=== PATIENT | female | born 1965 | race Caucasian/White ===

== ENCOUNTER 2020-01-06 11:35 | Outpatient (CLI) | payer OTHER, SELFPAY ==
--- NOTE | ~2020-01-06 | MMUS_ITS ---
EXAMINATION: MM diagnostic makayla LT w shane, US breast LT limited HISTORY: Six-month follow-up for probably benign left breast mass TECHNIQUE: Craniocaudal, mediolateral, and mediolateral oblique 3-D tomosynthesis images of the left breast were performed and synthetic 2-D images were generated. CAD analysis was submitted and interpr eted. High resolution limited left breast ultrasound was performed. COMPARISON: 05/30/2019, 05/19/2019, 04/26/2018 BREAST PARENCHYMAL COMPOSITION: The breasts are almost entirely fatty. FINDINGS: MAMMOGRAPHIC FINDINGS: A previously seen mass in the middle third of the outer breast at the 3:00 location has decreased in size since the comparison examination, consistent with a benign finding. There is been no suspicious calcification or architectural distortion. No new mass is identified. There is no suspicious interval change. ULTRASOUND: There is no evidence of focal abnormal solid or cystic lesion in the vicinity of the mammographic fin ding in question. In addition, the previously described ultrasound finding at the 1:00 location 7 cm from the nipple appear to more accurately represent normal parenchymal tissue on the current examinat ion. IMPRESSION: 1. No mammographic or sonographic evidence of malignancy. 2. Recommend routine screening mammography, due on the right in four months. BI-RADS Category 2: Benign finding(s). Reviewed, dictated and finalized at location A. IMPRESSION: 1. No mammographic or sonographic evidence of malignancy. 2. Recommend routine screening mammography, due on the right in four months. BI-RADS Category 2: Benign finding(s).
== END 2020-01-06 11:36 | disposition home or self-care (01) ==
PROVIDERS: PCP Family Medicine; Visit Provider Obstetrics & Gynecology
DX: R92.8 Other abnormal and inconclusive findings on diagnostic imaging of breast (principal)
CPT/HCPCS: 76642; 77061; 77065; G0279

== ENCOUNTER → 2020-02-13 11:59 | Outpatient (CLI) | payer OTHER, SELFPAY ==
--- NOTE | ~2020-02-13 | XR_ITS ---
EXAMINATION: XR knee LT 3V DATE: 02/13/2020 12:30 INDICATION: Left knee joint effusion. TECHNIQUE: 3 views of left knee were obtained. COMPARISON: None. FINDINGS: Bone alignment is normal. No fracture. There is mild tricompartmental osteoarthritis. No kn ee joint effusion. IMPRESSION: 1. Mild left knee osteoarthritis. Reviewed, dictated and finalized at location A.
== END ==
PROVIDERS: PCP Family Medicine; Visit Provider Family Medicine
DX: M17.12 Unilateral primary osteoarthritis, left knee (principal)
CPT/HCPCS: 73562

== ENCOUNTER → 2020-03-28 09:31 | Outpatient (CLI) | payer OTHER, SELFPAY ==
--- NOTE | ~2020-03-28 | DEXA_ITS ---
Bone Density Report Name: Angie Palmer Age: 54 Sex: Female Ethnicity: White Date of : 1965 Indication: postmenopausal; screening for osteoporosis; hysterectomy; Referring Provider: Carlos Fall Study: Bone densitometry was performed. Exam Date: March 28, 2020 Accession number: [id number] Bone Density: Region BMD T-score Z-score Classification AP Spine (L1-L4) 0.926 -1.1 0.0 Osteopenia Femoral Neck (Left) 0.613 -2.1 -1.1 Osteopenia Total Hip (Left) 0.886 -0.5 0.2 Normal Femoral Neck (Right) 0.749 -0.9 0.2 Normal Total Hip (Right) 0.916 -0.2 0.5 Normal Total Hip Mean 0.901 -0.4 0.4 Normal World Health Organization criteria for BMD impression classify patients as: Normal (T-score at or above -1.0), Osteopenia (T-score between -1.0 and -2.5), or Osteoporosis (T-score at or below -2.5). 10-year Fracture Risk(1): Major Osteoporotic Fracture 6.9% Hip Fracture 0.8% Reported Risk Factors: [place] (), Neck BMD=0.613, BMI=42.3 (1) FRAX(R) Version 3.08. Fracture probability calculated for an untreated patient. Fracture probability may be lower if the patient has received treatment. Clinical Information Provided by Patient: Has used the following medications: Vitamin D, GUS Has the following medical conditions: Hysterectomy Patient maximum height was 63 Menopause Age: 52 Drinks caffeinated beverages Onset of menses at age 12 Number of children 1 Impression: The patient has low bone mass, based on the Left Femoral Neck T-score. The patient has an estimated ten-year risk of hip fracture of 0.8% and an estimated ten-year risk of major fracture of 6.9%, based on the WHO FRAX algorithm. Discussion: BONE DENSITY IS LOW AT ONE OR MORE SKELETAL SITES. This patient's lowest T-score is low at one or more skeletal sites. It meets the World Health Organization's (WHO) criteria for ?low bone mass? (T-score between -1.0 and -2.5). The patient's 10-year risk of fracture as calculated by FRAX is less than the threshold where pharmacological therapy is recommended by the National Osteoporosis Foundation (NOF). However, all treatment decisions require clinical judgment and consideration of individual patient factors, including patient preferences, comorbidities, previous drug use, risk factors not captured in the FRAX model (e.g., frailty, falls, vitamin D deficiency, increased bone turnover, interval significant decline in bone density) and possible under or overestimation of fracture risk by FRAX. The patient should follow a healthful lifestyle (good nutrition with adequate calcium and vitamin D, and appropriate weight-bearing exercise). Follow-Up: Consider repeating this study in 2 to 3 years to reassess this patient's status, or sooner if there is some new clinical indication.
== END ==
PROVIDERS: PCP Family Medicine; Visit Provider Orthopaedic Surgery
DX: M85.80 Other specified disorders of bone density and structure, unspecified site (principal)
CPT/HCPCS: 77080

== ENCOUNTER → 2020-04-04 18:06 | Outpatient (CLI) | payer OTHER, SELFPAY ==
--- NOTE | ~2020-04-04 | MR_ITS ---
EXAMINATION: MR knee LT wo con DATE: 04/04/2020 19:20 INDICATION: Left knee pain TECHNIQUE: Magnetic resonance imaging (MRI) of the left knee was performed without intravenous contra st. Sequences included coronal PD-weighted FSE, coronal PD-weighted FS FSE, sagittal T2-weighted FSE , sagittal PD-weighted FS FSE and axial PD weighted fat saturated FSE. COMPARISON: None. FINDINGS: Medial compartment: Full-thickness radial tear at the posterior horn of the medial meniscus. Partial-thickness chondral u lceration/fissuring at the junction of the anterior to central weightbearing medial femoral condyle. Partial thickness cartilage loss with relatively smooth chondral surface along the medial half of the medial tibial plateau. There is prominent marrow edema underlying the medial aspect of the medial ti bial plateau surrounding the curvilinear low signal intensity subarticular fracture line which could be related to either a discrete trauma or stress fracture related to altered stress distribution. Sim ilar juxtaposed region of edema and subarticular low signal intensity likely fracture line along the medial rim of the anterior weightbearing medial femoral condyle. Lateral compartment: Lateral meniscus is normal. Articular cartilage is normal. Patellofemoral compartment: Partial-thickness chondral ulceration at the medial trochlea with subtle underlying cortical irregula rity. Ligaments and tendons: Anterior and posterior cruciate ligaments are normal. The medial collateral ligament and fibular tru ateral ligament complex are normal. Mild tendinopathy without discrete tear at the distal quadriceps and distal patellar tendons. The visualized medial and lateral hamstring tendons as well as the iliot ibial band are normal. Fluid: Moderate sized right knee joint effusion. No loose osteochondral bodies identified. Diffuse mild soft tissue edema about the left knee. Osseous/other: Normal marrow signal aside from previous noted subarticular edema at the medial femoral condyle and m edial tibial plateau likely related to nondisplaced articular stress fractures as previously detailed . No other fracture or pathologic marrow replacing process. IMPRESSION: 1. Radial tear at the posterior horn of the medial meniscus. 2. Prominent marrow edema surrounding nondisplaced subarticular fracture lines at the medial margin o f the medial tibial plateau and anterior weightbearing medial femoral condyle which could be related to either discrete trauma or stress fracture related to the meniscal tear and altered weight distribu tion. 3. Mild medial and patellofemoral compartment osteoarthritis with focal chondromalacia as detailed ab ove. 4. Likely reactive moderate sized left knee joint effusion. Reviewed, dictated and finalized at location A. IMPRESSION: 1. Radial tear at the posterior horn of the medial meniscus. 2. Prominent marrow edema surrounding nondisplaced subarticular fracture lines at the medial margin of the medial tibial plateau and anterior weightbearing me dial femoral condyle which could be related to either discrete trauma or stress fracture related to the meniscal tear and altered weight distribution. 3. Mild medial and patellofemoral compartment osteoarthritis with focal chondro malacia as detailed above. 4. Likely reactive moderate sized left knee joint effusion.
== END ==
PROVIDERS: Visit Provider Orthopaedic Surgery
DX: M25.462 Effusion, left knee (principal); S83.242A Other tear of medial meniscus, current injury, left knee, initial encounter; X58.XXXA Exposure to other specified factors, initial encounter
CPT/HCPCS: 73721

== ENCOUNTER 2020-05-22 11:49 | Outpatient (CLI) | payer OTHER, SELFPAY ==
--- NOTE | ~2020-05-22 | US_ITS ---
EXAMINATION: US venous doppler [facility] EXAM DATE: 05/22/2020 12:36 INDICATION: Left knee swelling. TECHNIQUE: Multiple grayscale, color flow and Doppler images of the left lower extremity deep venous system were obtained and reviewed. There is no prior study for comparison. FINDINGS: The left common femoral, femoral and profunda veins demonstrate normal color flow, respirat ory variation, augmentation and compressibility. Compressibility, color flow confirmed within the le ft popliteal, posterior tibial, peroneal, and greater saphenous veins. IMPRESSION: 1. No left lower extremity deep venous thrombosis. Reviewed, dictated and finalized at location B. CAL CLERICAL ASSISTANT
== END 2020-05-22 11:50 | disposition home or self-care (01) ==
PROVIDERS: PCP Family Medicine; Visit Provider Orthopaedic Surgery
DX: M25.462 Effusion, left knee (principal)
CPT/HCPCS: 93971

== ENCOUNTER → 2021-07-26 16:40 | Outpatient (CLI) | payer BC, SELFPAY ==
--- NOTE | ~2021-07-26 | XR_ITS ---
XR foot RT min 3V DATE: 07/26/2021 16:57 INDICATION: Wound on the bottom of the right foot. No injury. TECHNIQUE: 4 views COMPARISON: August 14, 2016 right foot FINDINGS: Moderate plantar calcaneal enthesopathy without erosive change or periostitis. Mild posteri or calcaneal enthesopathy. No fracture or dislocation, periosteal reaction or bone destruction. IMPRESSION: Calcaneal enthesopathy Reviewed, dictated and finalized at location A. [facility] LIVING CARE MANAGER IMPRESSION: Calcaneal enthesopathy
== END ==
PROVIDERS: PCP Family Medicine; Visit Provider Family Medicine
DX: S99.921A Unspecified injury of right foot, initial encounter (principal); X58.XXXA Exposure to other specified factors, initial encounter; M77.31 Calcaneal spur, right foot
CPT/HCPCS: 73630

== ENCOUNTER 2022-02-14 14:50 | Outpatient (CLI) | payer BC, SELFPAY ==
--- NOTE | ~2022-02-14 | MM_ITS ---
EXAMINATION: MM screening makayla BI w shane HISTORY: Screening mammogram TECHNIQUE: Craniocaudal and mediolateral oblique 3-D tomosynthesis images were obtained and synthetic 2-D images were generated. CAD analysis was submitted and interpreted. COMPARISON: No prior mammogram is available for comparison at this institution. BREAST PARENCHYMAL COMPOSITION: FINDINGS: 2.7 mm opacity is noted in the anterior outer left breast on craniocaudal view. Diagnostic left mammo gram and left breast ultrasound examination are recommended. No suspicious mass or architectural distortion, malignant calcification, skin thickening or retractio n of either breast is noted otherwise. IMPRESSION: 1. No 2.7 mm mass, anterior outer left breast 2. Diagnostic left mammogram and left breast ultrasound examination are recommended BI-RADS Category 0: Incomplete: Needs additional imaging evaluation. Reviewed, dictated and finalized at location A. IMPRESSION: 1. No 2.7 mm mass, anterior outer left breast 2. Diagnostic left mammogram and left breast ultrasound examination are recomme nded BI-RADS Category 0: Incomplete: Needs additional imaging evaluation.
== END 2022-02-14 14:51 | disposition home or self-care (01) ==
LOC: ANHIMG 14:54
PROVIDERS: PCP Emergency Medicine; Visit Provider Obstetrics & Gynecology
DX: Z12.31 Encounter for screening mammogram for malignant neoplasm of breast (principal); R92.8 Other abnormal and inconclusive findings on diagnostic imaging of breast
CPT/HCPCS: 77063; 77067

== ENCOUNTER 2022-03-07 12:12 | Outpatient (CLI) | payer BC, SELFPAY ==
--- NOTE | ~2022-03-07 | MMUS_ITS ---
EXAMINATION: MM diagnostic makayla LT w shane, US breast LT limited HISTORY: 2.7 mm opacity noted in anterior outer left breast on screening craniocaudal view of 02/15/20 TECHNIQUE: Additional 3-D tomosynthesis images of the left breast were performed and synthetic 2-D im ages were generated. CAD analysis was submitted and interpreted. High resolution targeted upper outer quadrant left breast ultrasound was performed. COMPARISON: 02/14/2022, 01/06/2020 bilateral screening mammogram examinations FINDINGS: MAMMOGRAPHIC FINDINGS: An approximately 3 mm mass is confirmed anteriorly in the upper outer quadrant of left breast at appr oximately 2:00 position. Sonographic correlation was obtained. ULTRASOUND: 2:00 1 cm from nipple: There is an irregular hypoechoic area measuring approximately 4.8 x 2.6 x 2.3 mm. Ultrasound-guided biopsy is recommended. IMPRESSION: 1. Suspicious small approximately 3 mm mammographic and sonographic mass at 2:00 2. Ultrasound-guided biopsy of left 2:00 breast mass is recommended BI-RADS category 4, suspicious findings. Dr. Lerner telephoned the report and ultrasound-guided biopsy recommendation on 03/17/2022 1345 hours to Stephan Astudillo Reviewed, dictated and finalized at location A. IMPRESSION: 1. Suspicious small approximately 3 mm mammographic and sonographic mass at 2:0 0 2. Ultrasound-guided biopsy of left 2:00 breast mass is recommended BI-RADS category 4, suspicious findings. Dr. Lerner telephoned the report and ultrasound-guided biopsy recommendation on 1345 hours to Stephan Astudillo
== END 2022-03-07 12:13 | disposition home or self-care (01) ==
LOC: ANHIMG 12:13
PROVIDERS: PCP Emergency Medicine; Visit Provider Obstetrics & Gynecology
DX: R92.8 Other abnormal and inconclusive findings on diagnostic imaging of breast (principal)
CPT/HCPCS: 76642; 77061; 77065; G0279

== ENCOUNTER 2022-03-08 13:22 | Emergency (ER) | payer BC, SELFPAY ==
[2022-03-08 13:36] VITALS: BP 128/80; PULSE 78; RESP 16; TEMP 36.3; O2SAT 99
--- NOTE | 2022-03-08 13:44 | ED.URI ---
HPI - URI/Sore Throat General Chief Complaint: Upper Respiratory Infection Stated Complaint: COUGH/CONGESTION Time Seen by Provider: 03/08/22 13:44 Source: patient and RN notes reviewed Mode of arrival: ambulatory Limitations: no limitations History of Present Illness HPI Narrative: 56-year-old female presents with concern for cough and chest congestion for 5 days. Reports her primary care doctor called her in [place] which were not helping. She denies shortness of breath, body aches, chills, sweats. She reports productive cough. She denies known sick contacts MD elicited complaint: cough Related Data Home Medications Medication Instructions Recorded Confirmed valacyclovir 500 mg tablet 500 mg PO DAILY 03/14/20 03/08/22 hydroxychloroquine 200 mg tablet 200 mg PO DAILY 01/04/21 03/08/22 meloxicam 15 mg tablet 15 mg PO DAILY 01/04/21 03/08/22 oxybutynin chloride 15 mg 15 mg PO DAILY 01/04/21 03/08/22 tablet,extended release 24 hr benzonatate 100 mg capsule mg PO 03/08/22 Allergies Allergy/AdvReac Type Severity Reaction Status Date / Time erythromycin base Allergy Intermediate RASH Verified 03/08/22 13:30 Penicillins Allergy Intermediate RASH Verified 03/08/22 13:30 azithromycin Allergy Unknown diarrhea Verified 03/08/22 13:30 cephalexin Allergy Unknown Skin Verified 03/08/22 13:30 Reaction Cephalosporins Allergy Unknown Unknown Verified 03/08/22 13:30 Macrolide Antibiotics Allergy Unknown Rash Verified 03/08/22 13:30 Sulfa (Sulfonamide Allergy Unknown RASH Verified 03/08/22 13:30 Antibiotics) CEPHALEXIN MONOHYDRATE Allergy Mild RASH Uncoded 03/08/22 13:30 MACROLIDES Allergy Unknown RASH Uncoded 03/08/22 13:30 Review of Systems Review of Systems: CONSTITUTIONAL: Denies malaise, chills, sweats, or fever. EYES: Denies visual changes, redness, or discharge. ENT: Denies rhinorrhea, congestion, sinus pain, otalgia and sore throat. CARDIOVASCULAR: Denies chest pain, palpitations, or edema. RESPIRATORY: Reports cough and chest congestion Denies dyspnea. GASTROINTESTINAL: Denies abdominal pain, nausea, vomiting, diarrhea SKIN: Denies rash or itching. MUSCULOSKELETAL: Denies myalgia. NEUROLOGIC: Denies headache. All systems reviewed & are unremarkable except as noted in HPI and below PMFSH Past Medical History Medical History (Updated 03/08/22 @ 13:50 by Irasema Chairez NP) Basal cell carcinoma (BCC) left knee Body mass index (BMI) of 40.1 to 44.9 in adult Hernia Surgical History Surgical History H/O: section H/O: hysterectomy Family History Family History Father Family history of cardiovascular disease Mother Family history of lung cancer Family history of malignant neoplasm of skin Other Cerebrovascular accident Diabetes mellitus Family history of allergic disorder Family history of malignant neoplasm Family history of malignant neoplasm of breast in first degree relative Social History Social History Smoking status: Never smoker Alcohol intake: current Comments At time of signature, agree with nursing past medical, surgical, social and family history. There is no relevant family history pertinent to the presenting complaint Exam Narrative: GENERAL: Well-appearing, well-nourished, and in no acute distress. HEAD: Normocephalic EYES: PERRLA, conjunctivae clear ENT: Nares clear, turbinates edematous and erythematous, clear discharge. Mucous membranes moist. TM pearly steiner with dull light reflex bilaterally; no tragal tenderness. Oropharynx not erythematous without lesions. Tonsils not enlarged and without exudate, no drooling, no hoarseness, no trismus, uvula midline. NECK: Supple. No lymphadenopathy CHEST: Clear to auscultation, breath sounds equal. No wheezing, rhonchi, rales, or stridor. No respira
== END 2022-03-08 14:03 | disposition home or self-care (01) ==
PROVIDERS: Emergency Provider Nurse Practitioner; PCP Emergency Medicine
DX: J40 Bronchitis, not specified as acute or chronic (principal); Z85.828 Personal history of other malignant neoplasm of skin
CPT/HCPCS: 99213; G0463

== ENCOUNTER 2023-02-25 08:15 | Outpatient (CLI) | payer BC, SELFPAY ==
[2023-02-25 18:32] LABS: Basophils Absolute Auto 0.1 K/mm3 (0.0-0.1); Basophils Percent Auto 1.3 % (0.2-1.2); Eosinophils Absolute Auto 0.2 K/mm3 (0-0.3); Eosinophils Percent Auto 3.7 % (0-4.4); Hematocrit 41.4 % (37.0-47.0); Hemoglobin 13.1 g/dL (12.0-15.0); Immature Granulocyte Absolute 0.02 K/mm3 (0.00-0.031); Immature Granulocyte Percent A 0.3 % (0-0.5); Lymphocytes Absolute Auto 1.51 K/mm3 (0.9-3.2); Lymphocytes Percent Auto 24.3 % (18.3-44.2); Mean Corpuscular HGB Conc 31.6 g/dl (32-36); Mean Corpuscular Hemoglobin 30.6 pg (26-34); Mean Corpuscular Volume 96.7 fl (80-100); Mean Platelet Volume 10.6 fl (7.4-10.4); Monocytes Absolute Auto 0.8 K/mm3 (0.1-0.6); Monocytes Percent Auto 12.4 % (2.6-8.5); Neutrophils Absolute Auto 3.6 K/mm3 (1.3-6.7); Platelet Count Result 279 k/mm3 (150-375); Red Blood Count 4.28 M/mm3 (4.2-5.4); Red Cell Distribution Width 12.1 % (11.5-14.5); White Blood Count 6.2 K/mm3 (4.5-10.0)
[2023-02-25 19:12] LABS: Appearance Urine Cloudy (Clear); Bacteria Urine 3+ /hpf; Bilirubin Urine Negative (Negative); Blood Urine Negative (Negative); Color Urine Yellow (Yellow); Glucose Urine UA Negative (Negative); Hyaline Casts Urine Present /lpf; Ketones Urine Negative (Negative); Leukocyte Esterase Ur 2+ LEU/UL (NEGATIVE); Nitrate Urine Negative (Negative); Non Pathogenic Casts 0-2; Protein Urine Negative (Negative); Squamous Epithelial Cell Urine Few /hpf (Few); Urobilinogen Urine 0.2 mg/dL (<2.0)
[2023-02-25 19:17] LABS: Add Urine Microscopic? YES
[2023-02-25 19:21] LABS: Alanine Aminotransferase 26 U/L (6-35); Albumin Level 4.4 g/dL (3.5-5.1); Alkaline Phosphatase 83 U/L (38-126); Anion Gap 9 mmol/L (8-16); Aspartate Amino Transferase 30 U/L (14-36); Bilirubin,Total 0.5 mg/dL (0.2-1.3); Blood Urea Nitrogen 20 mg/dL (7-17); CRP 1.4 mg/dL (<1.0); Calcium 9.1 mg/dL (8.4-10.2); Carbon Dioxide 27 mmol/L (22-30); Chloride 101 mmol/L (98-107); Estimated Glomerular Filt Rate > 60; Glucose 78 mg/dL (65-110); Potassium 4.3 mmol/L (3.4-5.0); Sodium 137 mmol/L (137-145)
[2023-02-25 19:30] LABS: Erythrocyte Sedimentation Rate 21 mm/hr (0-20)
== END 2023-02-25 08:16 | disposition home or self-care (01) ==
LOC: ANHGOSHLAB 08:19
PROVIDERS: PCP Emergency Medicine; Visit Provider Internal Medicine Rheumatology
DX: M35.00 Sjogren syndrome, unspecified (principal); Z51.81 Encounter for therapeutic drug level monitoring; R76.8 Other specified abnormal immunological findings in serum
CPT/HCPCS: 36415; 80053; 81001; 85025; 85652; 86140

== ENCOUNTER 2023-05-10 12:49 | Emergency (ER) | payer BC, SELFPAY ==
[2023-05-10 13:00] VITALS: BP 125/90; PULSE 81; RESP 16; TEMP 37.4; O2SAT 96
--- NOTE | 2023-05-10 13:01 | ED.URI ---
HPI - URI/Sore Throat General Chief Complaint: Upper Respiratory Infection Stated Complaint: Sinus Infection Time Seen by Provider: 05/10/23 13:13 Source: patient, RN notes reviewed and old records reviewed Mode of arrival: ambulatory Limitations: no limitations History of Present Illness HPI Narrative: 57 year old female presents to express care with complaints of feeling sinus congestion, drainage since Thursday with symptoms progressively getting worse. patient reports that she can't use her C-PAP since she is so stuffed up, she has headache and since yesterday evening she has had some generalized achiness. Patient reports that she has been taking her Zyrtec and some Sudafed with no help. Patient reports that she is unsure if she has had any fevers, has had some intermittent sinus headache that was relieved in the shower last night Patient reports that she has progressively felt worse and more worn down.Patient has been COVID vaccinated and has had flu shot. MD elicited complaint: cough, rhinorrhea and nasal congestion Pertinent past history: sinusitis, seasonal allergies and other (on hydroxychloroquine for Sjorgens) Onset (ago): day(s) (4 days sinus congestion, 1 day of body aches) Consistency: progressively worsening Pain scale (0-10): 3 Treatments prior to arrival: other (Zyrtec and Sudafed) Related Data Home Medications Medication Instructions Recorded Confirmed valacyclovir 500 mg tablet 500 mg PO DAILY 03/14/20 05/23/22 hydroxychloroquine 200 mg tablet 200 mg PO DAILY 01/04/21 05/23/22 meloxicam 15 mg tablet 15 mg PO DAILY 01/04/21 05/23/22 oxybutynin chloride 15 mg 15 mg PO DAILY 01/04/21 05/23/22 tablet,extended release 24 hr Allergies Allergy/AdvReac Type Severity Reaction Status Date / Time erythromycin base Allergy Intermediate RASH Verified 05/23/22 13:32 Penicillins Allergy Intermediate RASH Verified 05/23/22 13:32 azithromycin Allergy Unknown diarrhea Verified 05/23/22 13:32 cephalexin Allergy Unknown Skin Verified 05/23/22 13:32 Reaction Cephalosporins Allergy Unknown Unknown Verified 05/23/22 13:32 Macrolide Antibiotics Allergy Unknown Rash Verified 05/23/22 13:32 Sulfa (Sulfonamide Allergy Unknown RASH Verified 05/23/22 13:32 Antibiotics) CEPHALEXIN MONOHYDRATE Allergy Mild RASH Uncoded 05/23/22 13:32 MACROLIDES Allergy Unknown RASH Uncoded 05/23/22 13:32 Review of Systems Review of Systems: CONSTITUTIONAL: Reports malaise, chills, sweats, or fever. EYES: Denies visual changes, redness, or discharge. ENT: Reports rhinorrhea, congestion, sinus pain,no otalgia and no sore throat. CARDIOVASCULAR: Denies chest pain, palpitations, or edema. RESPIRATORY: Reports no acute cough.? Denies dyspnea. GASTROINTESTINAL: Denies abdominal pain, nausea, vomiting, diarrhea SKIN: Denies rash or itching. MUSCULOSKELETAL:reports generalized myalgia. NEUROLOGIC: Reports headache. All systems reviewed & are unremarkable except as noted in HPI and below PMFSH Past Medical History Medical History (Updated 05/11/23 @ 10:38 by Alia Sanchez NP) Basal cell carcinoma (BCC) left cheek Body mass index (BMI) of 40.1 to 44.9 in adult Hernia History of Sjogren's disease LUDWIN on CPAP Surgical History Surgical History H/O: section H/O: hysterectomy Family History Family History Father Family history of cardiovascular disease Mother Family history of lung cancer Family history of malignant neoplasm of skin Other Cerebrovascular accident Diabetes mellitus Family history of allergic disorder Family history of malignant neoplasm Family history of malignant neoplasm of breast in first degree relative Social History Social History Social History: Caffeine-coffee daily Smoking status: Never smoker Alcohol
== END 2023-05-10 13:47 | disposition home or self-care (01) ==
PROVIDERS: Emergency Provider Registered Nurse; PCP Emergency Medicine
DX: U07.1 COVID-19 (principal); M35.00 Sjogren syndrome, unspecified; G47.33 Obstructive sleep apnea (adult) (pediatric); Z85.828 Personal history of other malignant neoplasm of skin
CPT/HCPCS: 87426; 87804; 99213; C9803; G0463

== ENCOUNTER 2023-07-26 12:57 | Emergency (ER) | payer BC, SELFPAY ==
[2023-07-26 13:24] VITALS: BP 137/73; PULSE 83; RESP 16; TEMP 37; O2SAT 97
--- NOTE | 2023-07-26 13:28 | ED.URI ---
HPI - URI/Sore Throat General Chief Complaint: Upper Respiratory Infection Stated Complaint: BODY ACHES/TIRED/WATERY EYES/SINUS/SORE THROAT Time Seen by Provider: 07/26/23 13:40 Source: patient and RN notes reviewed Mode of arrival: ambulatory Limitations: no limitations History of Present Illness HPI Narrative: 57-year-old female presents concern for watery eyes, sore throat, nasal drainage, fatigue this started yesterday. Reports she took an allergy pill without much relief. She denies fever. Reports body and fatigue. MD elicited complaint: sore throat and nasal congestion Related Data Home Medications Medication Instructions Recorded Confirmed valacyclovir 500 mg tablet 500 mg PO DAILY 03/14/20 05/23/22 hydroxychloroquine 200 mg tablet 200 mg PO DAILY 01/04/21 05/23/22 meloxicam 15 mg tablet 15 mg PO DAILY 01/04/21 05/23/22 oxybutynin chloride 15 mg 15 mg PO DAILY 01/04/21 05/23/22 tablet,extended release 24 hr citalopram 20 mg tablet mg 07/26/23 Allergies Allergy/AdvReac Type Severity Reaction Status Date / Time erythromycin base Allergy Intermediate RASH Verified 05/23/22 13:32 Penicillins Allergy Intermediate RASH Verified 05/23/22 13:32 azithromycin Allergy Unknown diarrhea Verified 05/23/22 13:32 cephalexin Allergy Unknown Skin Verified 05/23/22 13:32 Reaction Cephalosporins Allergy Unknown Unknown Verified 05/23/22 13:32 Macrolide Antibiotics Allergy Unknown Rash Verified 05/23/22 13:32 Sulfa (Sulfonamide Allergy Unknown RASH Verified 05/23/22 13:32 Antibiotics) CEPHALEXIN MONOHYDRATE Allergy Mild RASH Uncoded 05/23/22 13:32 MACROLIDES Allergy Unknown RASH Uncoded 05/23/22 13:32 Review of Systems Review of Systems: CONSTITUTIONAL: Reports malaise, fatigue EYES: Denies visual changes, redness, or discharge. ENT: Reports rhinorrhea, congestion, otalgia and sore throat. CARDIOVASCULAR: Denies chest pain, palpitations, or edema. RESPIRATORY: Denies cough. Denies dyspnea. GASTROINTESTINAL: Denies abdominal pain, nausea, vomiting, diarrhea SKIN: Denies rash or itching. MUSCULOSKELETAL: Reports myalgia. NEUROLOGIC: Denies headache. All systems reviewed & are unremarkable except as noted in HPI and below PMFSH Past Medical History Medical History (Updated 07/26/23 @ 13:47 by Irasema Chairez NP) Basal cell carcinoma (BCC) left cheek Body mass index (BMI) of 40.1 to 44.9 in adult Hernia History of Sjogren's disease LUDWIN on CPAP Surgical History Surgical History H/O: section H/O: hysterectomy Family History Family History Father Family history of cardiovascular disease Mother Family history of lung cancer Family history of malignant neoplasm of skin Other Cerebrovascular accident Diabetes mellitus Family history of allergic disorder Family history of malignant neoplasm Family history of malignant neoplasm of breast in first degree relative Social History Social History Social History: Caffeine-coffee daily Smoking status: Never smoker Alcohol intake: current Alcohol use details: wine Lack of Transportation: No Lack of Food: Never True Current Housing: I Have Housing Concerned About Future Housing: No Difficulty Paying Gas/Electric Bills: No Difficulty Paying for Meds: Decline to Answer Currently Unemployed: No Education: Bachelor's Degree Difficulty w/ Childcare or Family Care: No Comments At time of signature, agree with nursing past medical, surgical, social and family history. There is no relevant family history pertinent to the presenting complaint Exam Narrative: GENERAL: Well-appearing, well-nourished, and in no acute distress. HEAD: Normocephalic EYES: PERRLA, conjunctivae clear ENT: Nares clear, turbinates edematous and erythematous, clear discharge.
== END 2023-07-26 13:58 | disposition home or self-care (01) ==
PROVIDERS: Emergency Provider Nurse Practitioner; PCP Emergency Medicine
DX: J06.9 Acute upper respiratory infection, unspecified (principal); Z20.822 Contact with and (suspected) exposure to COVID-19; G47.33 Obstructive sleep apnea (adult) (pediatric); M35.00 Sjogren syndrome, unspecified; Z85.828 Personal history of other malignant neoplasm of skin
CPT/HCPCS: 87081; 87426; 87804; 87880; 99213; G0463

== ENCOUNTER 2023-09-22 10:43 | Outpatient (CLI) | payer BC, SELFPAY ==
[2023-09-22 14:03] LABS: Basophils Absolute Auto 0.1 K/mm3 (0.0-0.1); Basophils Percent Auto 1.5 % (0.2-1.2); Eosinophils Absolute Auto 0.2 K/mm3 (0-0.3); Eosinophils Percent Auto 2.9 % (0-4.4); Hematocrit 41.3 % (37.0-47.0); Hemoglobin 13.2 g/dL (12.0-15.0); Immature Granulocyte Absolute 0.03 K/mm3 (0.00-0.031); Immature Granulocyte Percent A 0.5 % (0-0.5); Lymphocytes Absolute Auto 1.71 K/mm3 (0.9-3.2); Lymphocytes Percent Auto 26.3 % (18.3-44.2); Mean Corpuscular Hemoglobin 30.6 pg (26-34); Mean Corpuscular Volume 95.6 fl (80-100); Mean Platelet Volume 10.7 fl (7.4-10.4); Monocytes Absolute Auto 0.7 K/mm3 (0.1-0.6); Monocytes Percent Auto 10.8 % (2.6-8.5); Neutrophils Absolute Auto 3.8 K/mm3 (1.3-6.7); Platelet Count Result 283 k/mm3 (150-375); Red Blood Count 4.32 M/mm3 (4.2-5.4); Red Cell Distribution Width 12.4 % (11.5-14.5); White Blood Count 6.5 K/mm3 (4.5-10.0)
[2023-09-22 14:25] LABS: Alanine Aminotransferase 25 U/L (6-35); Albumin Level 4.4 g/dL (3.5-5.1); Alkaline Phosphatase 85 U/L (38-126); Anion Gap 2 mmol/L (4-12); Aspartate Amino Transferase 50 U/L (14-36); Bilirubin,Total 0.5 mg/dL (0.2-1.3); Blood Urea Nitrogen 16 mg/dL (7-17); Calcium 9.2 mg/dL (8.4-10.2); Carbon Dioxide 31 mmol/L (22-30); Chloride 104 mmol/L (98-107); Cholesterol 165 mg/dL (0-200); Estimated Glomerular Filt Rate > 60; Glucose 91 mg/dL (65-110); HDL Direct 58 mg/dL; Potassium 4.3 mmol/L (3.4-5.0); Sodium 137 mmol/L (137-145); Triglycerides 87 mg/dL (<150)
[2023-09-22 14:44] LABS: LDL Cholesterol Direct 87 mg/dL
[2023-09-22 17:58] LABS: Hemoglobin A1C 5.4 % (<5.7)
== END 2023-09-22 10:44 | disposition home or self-care (01) ==
LOC: ANHGOSHLAB 10:45
PROVIDERS: PCP Emergency Medicine; Visit Provider Emergency Medicine
DX: E66.01 Morbid (severe) obesity due to excess calories (principal); Z68.42 Body mass index [BMI] 45.0-49.9, adult
CPT/HCPCS: 36415; 80053; 80061; 83036; 84443; 85025

== ENCOUNTER 2023-10-27 08:34 | Outpatient (CLI) | payer BC, SELFPAY ==
--- NOTE | 2023-10-27 10:45 | NEURO_ITS ---
Impression: # Complains of right hand pain and numbness. # No Carpal Tunnel Syndrome at this stage. # No ulnar neuropathy. # Normal needle/EMG exam. Nerve Conduction Studies Anti Sensory Summary Table Stim Site NR Peak (ms) P-T Amp (?V) Site1 Site2 Delta-P (ms) Dist (cm) Cyril (m/s) Right Median Anti Sensory (2-3nd Digit) Wrist 2.6 94.0 Wrist 2-3nd Digit 2.6 14.0 54 Wrist 2.5 93.1 Wrist 2-3nd Digit 2.6 14.0 54 Right Radial Anti Sensory (Base 1st Digit) Wrist 2.1 26.6 Wrist Base 1st Digit 2.1 0.0 Right Ulnar Anti Sensory (5th Digit) Wrist 2.2 85.4 Wrist 5th Digit 2.2 14.0 64 Motor Summary Table Stim Site NR Onset (ms) O-P Amp (mV) Site1 Site2 Delta-0 (ms) Dist (cm) Cyril (m/s) Right Median Motor (Abd Poll Brev) Wrist 2.8 5.1 Elbow Wrist 4.4 26.0 59 Elbow 7.2 3.2 Right Ulnar Motor (Abd Dig Minimi) Wrist 2.2 6.8 A Elbow Wrist 4.5 28.0 62 A Elbow 6.7 5.4 F Wave Studies NR F-Lat (ms) L-R F-Lat (ms) Right Median (Mrkrs) (Abd Poll Brev) 25.01 Right Ulnar (Mrkrs) (Abd Dig Min) 24.24 EMG Side Muscle Nerve Root Ins Act Fibs Amp Dur Recrt Comment Right 1stDorInt Ulnar C8-T1 Nml Nml Nml Nml Nml Right Ext Indicis Radial (Post Int) C7-8 Nml Nml Nml Nml Nml Right Ext Digitorum Radial (Post Int) C7-8 Nml Nml Nml Nml Nml Right BrachioRad Radial C5-6 Nml Nml Nml Nml Nml Right PronatorTeres Median C6-7 Nml Nml Nml Nml Nml Right Abd Poll Brev Median C8-T1 Nml Nml Nml Nml Nml Right ABD Dig Min Ulnar C8-T1 Nml Nml Nml Nml Nml MTDD
== END 2023-10-27 08:35 | disposition home or self-care (01) ==
PROVIDERS: PCP Emergency Medicine; Visit Provider Emergency Medicine
DX: G56.21 Lesion of ulnar nerve, right upper limb (principal)
CPT/HCPCS: 95886; 95909

== ENCOUNTER 2023-10-31 11:16 | Emergency (ER) | payer BC, SELFPAY ==
[2023-10-31 11:37] VITALS: BP 124/79; PULSE 69; RESP 16; TEMP 36.7; O2SAT 98
--- NOTE | 2023-10-31 11:39 | ED.FEMALEGU ---
HPI - Female Genitourinary General Chief complaint: Urogenital-Female Stated complaint: UTI SYMPTOMS Time Seen by Provider: 10/31/23 11:47 Source: patient and RN notes reviewed Mode of arrival: ambulatory Limitations: no limitations History of Present Illness HPI Narrative: 57-year-old female presents with concern for multiple complaints she reports 2 week history of urinary frequency, urgency, suprapubic pressure. Reports feels like UTI symptoms. She denies fever, aches, chills, sweats, nausea, vomiting. She reports, in a separate complaint, a itchy red bump on her left hand and on her left ankle. MD elicited complaint: UTI Related Data Home Medications Medication Instructions Recorded Confirmed valacyclovir 500 mg tablet 500 mg PO DAILY 03/14/20 09/22/23 hydroxychloroquine 200 mg tablet 200 mg PO DAILY 01/04/21 09/22/23 meloxicam 15 mg tablet 15 mg PO DAILY 01/04/21 09/22/23 oxybutynin chloride 15 mg 15 mg PO DAILY 01/04/21 09/22/23 tablet,extended release 24 hr citalopram 20 mg tablet 20 mg PO DAILY 07/26/23 09/22/23 Allergies Allergy/AdvReac Type Severity Reaction Status Date / Time erythromycin base Allergy Intermediate RASH Verified 10/31/23 11:34 Penicillins Allergy Intermediate RASH Verified 10/31/23 11:34 azithromycin Allergy Unknown diarrhea Verified 10/31/23 11:34 cephalexin Allergy Unknown Skin Verified 10/31/23 11:34 Reaction Cephalosporins Allergy Unknown Unknown Verified 10/31/23 11:34 Macrolide Antibiotics Allergy Unknown Rash Verified 10/31/23 11:34 Sulfa (Sulfonamide Allergy Unknown RASH Verified 10/31/23 11:34 Antibiotics) CEPHALEXIN MONOHYDRATE Allergy Mild RASH Uncoded 10/31/23 11:34 MACROLIDES Allergy Unknown RASH Uncoded 10/31/23 11:34 Review of Systems Review of Systems: CONSTITUTIONAL: Denies malaise, chills, sweats, or fever. CARDIOVASCULAR: Denies chest pain, palpitations, or edema. RESPIRATORY: Denies cough or dyspnea. GASTROINTESTINAL: Denies abdominal pain, nausea, vomiting, diarrhea GENITOURINARY: Reports frequency, urgency, suprapubic pressure. Denies flank pain or hematuria. SKIN: Reports a red itchy bump on her left hand on her left ankle MUSCULOSKELETAL: Denies back pain or myalgia. All systems reviewed & are unremarkable except as noted in HPI and below PMFSH Past Medical History Medical History Basal cell carcinoma (BCC) left cheek Body mass index (BMI) of 40.1 to 44.9 in adult Hernia History of Sjogren's disease LUDWIN on CPAP Surgical History Surgical History H/O: section H/O: hysterectomy Family History Family History Father Family history of cardiovascular disease Mother Family history of lung cancer Family history of malignant neoplasm of skin Other Cerebrovascular accident Diabetes mellitus Family history of allergic disorder Family history of malignant neoplasm Family history of malignant neoplasm of breast in first degree relative Social History Social History Social History: Caffeine-coffee daily Smoking status: Never smoker Alcohol intake: current Alcohol use details: wine Lack of Transportation: No Lack of Food: Never True Current Housing: I Have Housing Concerned About Future Housing: No Difficulty Paying Gas/Electric Bills: No Difficulty Paying for Meds: Decline to Answer Currently Unemployed: No Education: Bachelor's Degree Difficulty w/ Childcare or Family Care: No Comments At time of signature, agree with nursing past medical, surgical, social and family history. There is no relevant family history pertinent to the presenting complaint Exam Narrative: GENERAL: Well-appearing, well-nourished, and in no acute distress. HEAD: Normocephalic. EYES: PERRLA, conjuncti
== END 2023-10-31 11:59 | disposition home or self-care (01) ==
PROVIDERS: Emergency Provider Nurse Practitioner; PCP Emergency Medicine
DX: R35.0 Frequency of micturition (principal); R39.15 Urgency of urination; R10.30 Lower abdominal pain, unspecified; R21 Rash and other nonspecific skin eruption; M35.00 Sjogren syndrome, unspecified; G47.33 Obstructive sleep apnea (adult) (pediatric); Z85.828 Personal history of other malignant neoplasm of skin
CPT/HCPCS: 81003; 87086; 87088; 99213; G0463

== ENCOUNTER 2024-01-08 06:33 | Outpatient (CLI) | payer BC, SELFPAY ==
--- NOTE | ~2024-01-08 | MR_ITS ---
EXAMINATION: MR IAC wo con DATE: 01/08/2024 07:20 INDICATION: Unspecified hearing loss, unspecified ear. TECHNIQUE: Magnetic resonance imaging (MRI) of the brain, brainstem, and internal auditory canals was performed without intravenous contrast. COMPARISON: None. FINDINGS: There is no intracranial hemorrhage, acute infarction, or abnormal intracranial mass lesion . There are scattered areas of nonspecific increased T2-weighted signal intensity in the cerebral whi te matter. The ventricles are normal in size. The paranasal sinuses are clear. The orbits are normal. The mastoid air cells are normal. The internal auditory canals, inner ears, and tympanic cavities ar e normal. IMPRESSION: 1. Mild nonspecific cerebral white matter disease, which likely represents chronic small vessel ische kimberly disease. Reviewed, dictated and finalized at location E. IMPRESSION: 1. Mild nonspecific cerebral white matter disease, which likely represents rn neonatal icu tony small vessel ischemic disease.
== END 2024-01-08 06:34 | disposition home or self-care (01) ==
PROVIDERS: PCP Emergency Medicine; Visit Provider Emergency Medicine
DX: H91.90 Unspecified hearing loss, unspecified ear (principal); R90.82 White matter disease, unspecified
CPT/HCPCS: 70551

== ENCOUNTER 2024-03-12 09:24 | Emergency (ER) | payer BC, SELFPAY ==
[2024-03-12 09:29] VITALS: BP 111/80; PULSE 82; RESP 16; TEMP 36.6; O2SAT 97
--- NOTE | 2024-03-12 09:57 | ED.SKABFB ---
HPI - Skin/Abscess/Foreign Bdy General Chief complaint: Skin/Abscess/Foreign Body Stated complaint: RASH Time Seen by Provider: 03/12/24 09:39 Source: patient and RN notes reviewed Mode of arrival: ambulatory Limitations: no limitations History of Present Illness HPI narrative: Patient presents today complaining of fluid filled blisters to the right forearm x4 days. She also noted 1 to the left forearm a few days ago. Denies itching, pain, burning. She has been outside recently. She has tried Benadryl without relief. Related Data Home Medications Medication Instructions Recorded Confirmed valacyclovir 500 mg tablet 500 mg PO DAILY 03/14/20 01/04/24 hydroxychloroquine 200 mg tablet 200 mg PO DAILY 01/04/21 01/04/24 meloxicam 15 mg tablet 15 mg PO DAILY 01/04/21 01/04/24 oxybutynin chloride 15 mg 15 mg PO DAILY 01/04/21 01/04/24 tablet,extended release 24 hr citalopram 20 mg tablet 20 mg PO DAILY 07/26/23 01/04/24 Allergies Allergy/AdvReac Type Severity Reaction Status Date / Time erythromycin base Allergy Intermediate RASH Verified 03/12/24 10:16 Penicillins Allergy Intermediate RASH Verified 03/12/24 10:16 azithromycin Allergy Unknown diarrhea Verified 03/12/24 10:16 cephalexin Allergy Unknown Skin Verified 03/12/24 10:16 Reaction Cephalosporins Allergy Unknown Unknown Verified 03/12/24 10:16 Macrolide Antibiotics Allergy Unknown Rash Verified 03/12/24 10:16 Sulfa (Sulfonamide Allergy Unknown RASH Verified 03/12/24 10:16 Antibiotics) Review of Systems Review of Systems: CONSTITUTIONAL: Denies body aches, fever, chills, or sweats. EYES: Denies visual changes, redness, or discharge. ENT: Denies rhinorrhea, congestion, sore throat, or otalgia. CARDIOVASCULAR: Denies chest pain, palpitations, or edema. RESPIRATORY: Denies cough or dyspnea. GASTROINTESTINAL: Denies abdominal pain, nausea, vomiting, or diarrhea. GENITOURINARY: Denies dysuria or hematuria. SKIN: Denies rash, itching. +lesions MUSCULOSKELETAL: Denies back pain, joint pain, or myalgia. NEUROLOGIC: Denies headache, numbness, tingling, or weakness. PSYCH: Denies depression or anxiety. [facility] Past Medical History Medical History Basal cell carcinoma (BCC) left cheek Body mass index (BMI) of 40.1 to 44.9 in adult Hernia History of Sjogren's disease LUDWIN on CPAP Surgical History Surgical History H/O: section H/O: hysterectomy Family History Family History Father Family history of cardiovascular disease Mother Family history of lung cancer Family history of malignant neoplasm of skin Other Cerebrovascular accident Diabetes mellitus Family history of allergic disorder Family history of malignant neoplasm Family history of malignant neoplasm of breast in first degree relative Social History Social History Social History: Caffeine-coffee daily Smoking status: Never smoker Alcohol intake: current Alcohol use details: wine Lack of Transportation: No Lack of Food: Never True Current Housing: I Have Housing Concerned About Future Housing: No Difficulty Paying Gas/Electric Bills: No Difficulty Paying for Meds: Decline to Answer Currently Unemployed: No Education: Bachelor's Degree Difficulty w/ Childcare or Family Care: No Comments At time of signature, I have reviewed and agree with nursing past medical, surgical, social and family history unless otherwise noted. Please see nursing chart for further information. There is no relevant family history pertinent to the presenting complaint Exam Narrative: GENERAL: Well-appearing, well-nourished, and in no acute distress. HEAD: Normocephalic, atraumatic. EYES: EOMI. No redness or drainage. Conju
== END 2024-03-12 09:43 | disposition home or self-care (01) ==
PROVIDERS: Emergency Provider Nurse Practitioner; PCP Emergency Medicine
DX: R21 Rash and other nonspecific skin eruption (principal); M35.00 Sjogren syndrome, unspecified; G47.33 Obstructive sleep apnea (adult) (pediatric); Z85.828 Personal history of other malignant neoplasm of skin
CPT/HCPCS: 99211; G0463

== ENCOUNTER 2024-04-08 09:10 | Outpatient (CLI) | payer BC, SELFPAY ==
[2024-04-08 16:31] LABS: Basophils Absolute Auto 0.1 K/mm3 (0.0-0.1); Eosinophils Absolute Auto 0.2 K/mm3 (0-0.3); Eosinophils Percent Auto 3.9 % (0-4.4); Hematocrit 43.6 % (37.0-47.0); Hemoglobin 13.9 g/dL (12.0-15.0); Immature Granulocyte Absolute 0.02 K/mm3 (0.00-0.031); Immature Granulocyte Percent A 0.3 % (0-0.5); Lymphocytes Absolute Auto 1.59 K/mm3 (0.9-3.2); Lymphocytes Percent Auto 25.9 % (18.3-44.2); Mean Corpuscular HGB Conc 31.9 g/dl (32-36); Mean Corpuscular Hemoglobin 30.3 pg (26-34); Mean Corpuscular Volume 95.2 fl (80-100); Mean Platelet Volume 10.7 fl (7.4-10.4); Monocytes Absolute Auto 0.6 K/mm3 (0.1-0.6); Monocytes Percent Auto 9.8 % (2.6-8.5); Neutrophils Absolute Auto 3.6 K/mm3 (1.3-6.7); Neutrophils Percent Auto 58.1 % (45.5-73.1); Platelet Count Result 304 k/mm3 (150-375); Red Blood Count 4.58 M/mm3 (4.2-5.4); Red Cell Distribution Width 12.1 % (11.5-14.5); White Blood Count 6.1 K/mm3 (4.5-10.0)
[2024-04-08 17:03] LABS: Alanine Aminotransferase 26 U/L (6-35); Albumin Level 4.5 g/dL (3.5-5.1); Alkaline Phosphatase 76 U/L (38-126); Anion Gap 7 mmol/L (4-12); Aspartate Amino Transferase 43 U/L (14-36); Bilirubin,Total 0.5 mg/dL (0.2-1.3); Blood Urea Nitrogen 19 mg/dL (7-17); Carbon Dioxide 28 mmol/L (22-30); Chloride 102 mmol/L (98-107); Estimated Glomerular Filt Rate > 60; Glucose 93 mg/dL (65-110); Potassium 4.4 mmol/L (3.4-5.0); Sodium 137 mmol/L (137-145)
[2024-04-08 17:04] LABS: Free T4 Free Thyroxine 1.11 ng/mL (0.78-2.19)
[2024-04-08 17:08] LABS: Vitamin D 25 Hydroxy 49.4 ng/mL
[2024-04-08 18:03] LABS: Folic Acid 10.3 ng/mL (2.76->20)
[2024-04-11 17:24] LABS: Vitamin B6 8.8 ng/mL (2.1-21.7)
== END 2024-04-08 09:11 | disposition home or self-care (01) ==
LOC: ANHGOSHLAB 09:11
PROVIDERS: PCP Emergency Medicine; Visit Provider Nurse Practitioner Family
DX: F41.9 Anxiety disorder, unspecified (principal); F90.9 Attention-deficit hyperactivity disorder, unspecified type; G25.81 Restless legs syndrome; E66.01 Morbid (severe) obesity due to excess calories; Z68.42 Body mass index [BMI] 45.0-49.9, adult; E55.9 Vitamin D deficiency, unspecified
CPT/HCPCS: 36415; 80053; 82306; 82607; 82746; 84207; 84439; 84443; 85025

== ENCOUNTER 2024-05-10 15:24 | Outpatient (CLI) | payer BC, SELFPAY ==
[2024-05-10 19:24] LABS: Alanine Aminotransferase 31 U/L (6-35); Albumin Level 4.6 g/dL (3.5-5.1); Alkaline Phosphatase 77 U/L (38-126); Anion Gap 6 mmol/L (4-12); Aspartate Amino Transferase 39 U/L (14-36); Bilirubin,Total 0.4 mg/dL (0.2-1.3); Blood Urea Nitrogen 20 mg/dL (7-17); CRP 1.2 mg/dL (<1.0); Calcium 9.5 mg/dL (8.4-10.2); Carbon Dioxide 30 mmol/L (22-30); Chloride 100 mmol/L (98-107); Estimated Glomerular Filt Rate > 60; Glucose 87 mg/dL (65-110); Potassium 4.3 mmol/L (3.4-5.0); Sodium 136 mmol/L (137-145)
[2024-05-10 19:41] LABS: Basophils Absolute Auto 0.1 K/mm3 (0.0-0.1); Basophils Percent Auto 1.1 % (0.2-1.2); Eosinophils Absolute Auto 0.2 K/mm3 (0-0.3); Eosinophils Percent Auto 2.3 % (0-4.4); Hematocrit 41.5 % (37.0-47.0); Hemoglobin 13.8 g/dL (12.0-15.0); Immature Granulocyte Absolute 0.03 K/mm3 (0.00-0.031); Immature Granulocyte Percent A 0.4 % (0-0.5); Lymphocytes Absolute Auto 2.06 K/mm3 (0.9-3.2); Lymphocytes Percent Auto 25.2 % (18.3-44.2); Mean Corpuscular HGB Conc 33.3 g/dl (32-36); Mean Corpuscular Hemoglobin 31.1 pg (26-34); Mean Corpuscular Volume 93.5 fl (80-100); Mean Platelet Volume 10.7 fl (7.4-10.4); Monocytes Absolute Auto 0.8 K/mm3 (0.1-0.6); Monocytes Percent Auto 9.2 % (2.6-8.5); Neutrophils Percent Auto 61.8 % (45.5-73.1); Platelet Count Result 275 k/mm3 (150-375); Red Blood Count 4.44 M/mm3 (4.2-5.4); Red Cell Distribution Width 11.9 % (11.5-14.5); White Blood Count 8.2 K/mm3 (4.5-10.0)
[2024-05-10 20:26] LABS: Erythrocyte Sedimentation Rate 19 mm/hr (0-20)
[2024-05-11 15:43] LABS: RNP Antibodies <1.0 NEG AI (<1.0 NEG); SS-A <1.0 NEG AI (<1.0 NEG); SS-B 2.1 POS AI (<1.0 NEG)
== END 2024-05-10 15:25 | disposition home or self-care (01) ==
LOC: ANHGOSHLAB 15:28
PROVIDERS: PCP Emergency Medicine; Visit Provider Internal Medicine Rheumatology
DX: R76.8 Other specified abnormal immunological findings in serum (principal); Z51.81 Encounter for therapeutic drug level monitoring
CPT/HCPCS: 36415; 80053; 85025; 85652; 86038; 86039; 86140; 86225; 86235

== ENCOUNTER 2024-08-15 08:50 | Emergency (ER) | payer BC, SELFPAY ==
[2024-08-15 08:57] VITALS: BP 128/79; PULSE 83; RESP 16; TEMP 36.6; O2SAT 98
--- NOTE | 2024-08-15 09:05 | ED_ITS ---
HPI - URI/Sore Throat General Chief Complaint: Upper Respiratory Infection Stated Complaint: Upper Respiratory Symptoms Time Seen by Provider: 08/15/24 09:00 Source: patient Mode of arrival: ambulatory Limitations: no limitations History of Present Illness HPI Narrative: Angie is a 58-year-old female patient presenting to the clinic today with complaints of sinus congestion, pressure, headache, and cough patient reports symptoms have been going on for approximately 8-9 days. Has felt feverish. She reports she is blowing out some yellow nasal drainage with some blood in it. Denies any chest pain or shortness of breath. MD elicited complaint: cough, nasal congestion and sinus pain Related Data Home Medications ?Medication ?Instructions ?Recorded ?Confirmed ?Last Taken ?Type valacyclovir 500 mg tablet 500 mg PO DAILY 03/14/20 07/27/24 Unknown History hydroxychloroquine 200 mg tablet 200 mg PO DAILY 01/04/21 07/27/24 Unknown History meloxicam 15 mg tablet 15 mg PO DAILY 01/04/21 07/27/24 Unknown History oxybutynin chloride 15 mg 15 mg PO DAILY 01/04/21 07/27/24 Unknown History tablet,extended release 24 hr Allergies Allergy/AdvReac Type Severity Reaction Status Date / Time erythromycin base Allergy Intermediate RASH Verified 07/27/24 16:29 Penicillins Allergy Intermediate RASH Verified 07/27/24 16:29 azithromycin Allergy Unknown diarrhea Verified 07/27/24 16:29 cephalexin Allergy Unknown Skin Verified 07/27/24 16:29 Reaction Cephalosporins Allergy Unknown Unknown Verified 07/27/24 16:29 Macrolide Antibiotics Allergy Unknown Rash Verified 07/27/24 16:29 Sulfa (Sulfonamide Allergy Unknown RASH Verified 07/27/24 16:29 Antibiotics) Review of Systems Review of Systems: Pertinent positives per HPI. Patient denies any rash,visual changes, dizziness, shortness of breath, chest pain, palpitations, nausea, vomiting, diarrhea, constipation, abdominal pain, or any urinary issues. [facility] Past Medical History Medical History History of Sjogren's disease LUDWIN on CPAP Body mass index (BMI) of 40.1 to 44.9 in adult Hernia Basal cell carcinoma (BCC) left cheek Surgical History Surgical History H/O: section H/O: hysterectomy Family History Family History Father Family history of cardiovascular disease Mother Family history of lung cancer Family history of malignant neoplasm of skin Other Cerebrovascular accident Diabetes mellitus Family history of allergic disorder Family history of malignant neoplasm Family history of malignant neoplasm of breast in first degree relative Social History Social History Social History: Caffeine-coffee daily Smoking status: Never smoker Alcohol intake: current Alcohol use details: wine Lack of Transportation: No Lack of Food: Never True Current Housing: I Have Housing Concerned About Future Housing: No Difficulty Paying Gas/Electric Bills: No Difficulty Paying for Meds: Decline to Answer Currently Unemployed: No Education: Bachelor's Degree Difficulty w/ Childcare or Family Care: No Comments At the time of my signature, I reviewed and agree with the nursing past medical, surgical, social, and family history. There is no relevant family history pertinent to the patient complaint. Exam Narrative: General: Well-developed, morbidly obese, in no apparent distress Head: Normocephalic, atraumatic Eyes: Pupils equally round and reactive to light bilaterally, EOM intact, sclera and conjunctive clear, no discharge, lids normal Ears: TMs intact and congested, ear canals clear, no drainage, grossly hearing normal. Nose: Nares patent, yellow nasal discharge, moderate inflammation, maxillary f rontal sinus tenderness. Mouth: Oral pharynx red without lesions or masses, good dentition, MMM. Postnasal drip Neck: Supple, trachea midline, no enlargement of anterior or posterior cervical nodes, no thyroid masses or goiter palpable. Cardio: Regular rate and rhythm, s1 and s2 normal, no murmur appreciated. Resp: Clear to auscultation bilaterally, no rhonchi, rales, wheezing or rubs Course Course Emergency Course: Portions of this record may have been created with voice recognition software. Level of Care: Express Care Visit Vital Signs Vital signs: Vital Signs Temperature 36.6 C 08/15/24 08:57 Pulse Rate 83 08/15/24 08:57 Respiratory Rate 16 08/15/24 08:57 Blood Pressure 128/79 08/15/24 08:57 Pulse Oximetry 98 08/15/24 08:57 Oxygen Delivery Room Air 08/15/24 08:57 Temperature 36.6 C 08/15/24 08:57 Pulse Rate 83 08/15/24 08:57 Respiratory Rate 16 08/15/24 08:57 Blood Pressure 128/79 08/15/24 08:57 Pulse Oximetry 98 08/15/24 08:57 Oxygen Delivery Room Air 08/15/24 08:57 Vital signs reviewed MDM - URI/Sore Throat MDM Narrative Medical decision making narrative: At the time of visit patient is resting comfortably on the exam table. Patient appears to be nontoxic. Plan: Patient has acute bacterial rhinosinusitis. Prescription for doxycycline and prednisone was sent to the pharmacy. Supportive measures were discussed with the patient and they voiced understanding discharge instructions and agrees to treatment plan. Return precautions reviewed Differential Diagnosis Differential diagnosis: Likely upper respiratory infection, otitis media, sinusitis, viral infection, bronchitis, influenza, pharyngitis and other (COVID) Discharge Plan Discharge Clinical Impression: Acute bacterial rhinosinusitis Patient Disposition: Home, Self-Care Condition: Stable Instructions: Antibiotic Form, Rhinosinusitis (ED) Additional Instructions: Take prescription medications only as prescribed-prednisone and on doxycycline Increase fluids and stay well hydrated Tylenol/motrin for pain/fever Flonase and OTC antihistamines as directed Vicks vapor rub to open sinuses Sinus rinses for congestion Cepacol spray, cough drops, throat lozenges, warm tea with honey/lemon, gargle salt water to soothe throat BRAT diet for diarrhea Clear liquids x 24 hours then advance as tolerated for nausea/vomiting Go to the ED if you develop a worsening in your condition- high fever not controlled by Tylenol or Motrin, dehydration, weakness, lethargy, shortness of breath, or chest pain. Follow up with your PCP in 3-5 days if symptoms persist. Patient Language: Azeri Prescriptions: New doxycycline monohydrate 100 mg capsule 100 mg PO BID 10 Days Qty: 20 0RF prednisone 20 mg tablet 40 mg PO DAILY 5 Days Qty: 10 0RF No Action valacyclovir 500 mg tablet 500 mg PO DAILY oxybutynin chloride 15 mg tablet extended release 24 hr 15 mg PO DAILY meloxicam 15 mg tablet 15 mg PO DAILY hydroxychloroquine 200 mg tablet 200 mg PO DAILY estradiol [Estrace] 2 mg tablet 2 mg PO DAILY Qty: 30 1RF lisdexamfetamine [Vyvanse] 20 mg capsule 20 mg PO DAILY Qty: 30 0RF Zepbound 15 mg/0.5 mL pen injector 15 mg subcut WEEKLY Qty: 2 3RF fluoxetine 20 mg capsule 20 mg PO DAILY Qty: 30 2RF Follow-up/Referrals: Lore Sarmiento, MARKETING DEVELOPMENT REPRESENTATIVE-[facility] [Primary Care Provider] - Time of Disposition: 09:07 Quality NIHSS Nursing Documentation ED NIHSS nursing documentation: reviewed/agree
== END 2024-08-15 09:09 | disposition home or self-care (01) ==
PROVIDERS: Emergency Provider Nurse Practitioner Family; PCP Nurse Practitioner Family
DX: J01.90 Acute sinusitis, unspecified (principal); M35.00 Sjogren syndrome, unspecified; G47.33 Obstructive sleep apnea (adult) (pediatric); Z85.828 Personal history of other malignant neoplasm of skin
CPT/HCPCS: 99213; G0463

== ENCOUNTER 2025-05-13 09:56 | Emergency (ER) | payer BC, SELFPAY ==
[2025-05-13] VITALS (11 sets, daily range): BP systolic 123–146; BP diastolic 66–83; PULSE 66–77; RESP 14–16; O2SAT 95–98
--- NOTE | ~2025-05-13 | CT_ITS ---
CT abdomen pelvis w con Clinical History: Epigastric pain . Comparison: CT abdomen and pelvis 04/22/2018 Technique: Axial images lung bases to symphysis pubis IV contrast information not listed in PACS Coronal, sagittal reformats CT images acquired with automatic exposure control for dose reduction DLP: 771 mGy-cm Findings: Lung bases: Clear. Visualized heart and pericardium: Mildly enlarged. Liver: Mild intrahepatic biliary ductal dilatation. Gallbladder: Dilated. Spleen: Unremarkable. Pancreas: Unremarkable. Adrenal glands: Unremarkable. Kidneys: Right kidney- No hydronephrosis. No renal stones. Interpolar cortical defect. Left kidney- No hydronephrosis. No renal stones. Distal esophagus/stomach: Unremarkable. Small bowel loops: Normal caliber and wall thickness. Colon: Diverticula. Normal caliber and wall thickness. Appendectomy. Nodes: No enlarged nodes. Peritoneum: No ascites. No free air. Urinary bladder: Unremarkable. Uterus: Removed. Adnexa: Small cystic focus right side. Bones: No acute bony abnormality. Soft tissues: Probable midline abdominal wall hernia mesh repair. Aorta: No aneurysm or dissection. IVC: Unremarkable. Main portal vein/SMV/splenic vein: Patent. IMPRESSION: 1. No acute findings. Reviewed, dictated and finalized at location R. LOGIC DEVELOPER IMPRESSION: 1. No acute findings.
[2025-05-13 10:16] LABS: Hematocrit 37.8 % (37.0-47.0); Hemoglobin 12.5 g/dL (12.0-15.0); Immature Granulocyte Percent A 0.3 % (0-0.5); Lymphocytes Absolute Auto 1.68 K/mm3 (0.9-3.2); Mean Corpuscular HGB Conc 33.1 g/dl (32-36); Mean Corpuscular Hemoglobin 31.4 pg (26-34); Mean Corpuscular Volume 95.0 fl (80-100); Nucleated Red Blood Cells Absolute Auto 0.000 K/mm3 (0.0-0.012); Nucleated Red Blood Cells Perc 0.0 % (0.0-0.2); Platelet Count Result 258 k/mm3 (150-375); Red Blood Count 3.98 M/mm3 (4.2-5.4); White Blood Count 7.4 K/mm3 (4.5-10.0)
--- NOTE | 2025-05-13 10:17 | ED.ABDPAIN ---
HPI - Abdominal Pain General Chief Complaint: Abdominal Pain Stated Complaint: upper abd pain, nausea, Time Seen by Provider: 05/13/25 10:09 Source: patient History of Present Illness HPI narrative: 5 years old white female came to the ED with epigastric pain started at 6:30 a.m. this morning, dull aching, radiating to the mid of her back, associated with nausea and wound feeling. She denies any vomiting keep, fever, chills, diarrhea, constipation infected discharge. History of appendectomy, hysterectomy and umbilical hernia repair,. Related Data Home Medications ?Medication ?Instructions ?Recorded ?Confirmed ?Last Taken ?Type valacyclovir 500 mg tablet 500 mg PO DAILY 03/14/20 12/07/24 Unknown History hydroxychloroquine 200 mg tablet 200 mg PO DAILY 01/04/21 12/07/24 Unknown History meloxicam 15 mg tablet 15 mg PO DAILY 01/04/21 12/07/24 Unknown History oxybutynin chloride 15 mg 15 mg PO DAILY 01/04/21 12/07/24 Unknown History tablet,extended release 24 hr Allergies Allergy/AdvReac Type Severity Reaction Status Date / Time erythromycin base Allergy Intermediate RASH Verified 05/13/25 10:32 Penicillins Allergy Intermediate RASH Verified 05/13/25 10:32 cephalexin Allergy Unknown Skin Verified 05/13/25 10:32 Reaction Cephalosporins Allergy Unknown Unknown Verified 05/13/25 10:32 Macrolide Antibiotics Allergy Unknown Rash Verified 05/13/25 10:32 Sulfa (Sulfonamide Allergy Unknown RASH Verified 05/13/25 10:32 Antibiotics) azithromycin AdvReac Unknown diarrhea Verified 05/13/25 12:11 Review of Systems Review of Systems: All systems reviewed & are unremarkable except as noted in HPI and below PMFSH Past Medical History Medical History History of Sjogren's disease LUDWIN on CPAP Body mass index (BMI) of 40.1 to 44.9 in adult Hernia Basal cell carcinoma (BCC) left cheek Surgical History Surgical History H/O: section H/O: hysterectomy Family History Family History Father Family history of cardiovascular disease Mother Family history of lung cancer Family history of malignant neoplasm of skin Other Cerebrovascular accident Diabetes mellitus Family history of allergic disorder Family history of malignant neoplasm Family history of malignant neoplasm of breast in first degree relative Social History Social History Social History: Caffeine-coffee daily Smoking status: Never smoker Alcohol intake: current Alcohol use details: wine Lack of Transportation: No Lack of Food: Never True Current Housing: I Have Housing Concerned About Future Housing: No Difficulty Paying Gas/Electric Bills: No Difficulty Paying for Meds: Decline to Answer Currently Unemployed: No Education: Bachelor's Degree Difficulty w/ Childcare or Family Care: No Exam Narrative: General appearance: Well-developed, well-nourished Skin: Normal color Head: Normocephalic, nontraumatic Eyes: Clear conjunctiva ENT: Oropharynx normal, ears normal, nose normal Neck: Supple, nontender Chest and respiratory: Airway patent, no respiratory distress, no accessory muscle use Heart: Regular rate/rhythm Abdomen: Soft, mild tenderness epigastric area and right upper quadrant, no organomegaly, quiet bowel sounds Vascular: Normal peripheral pulses, normal capillary refill. Musculoskeletal: Normal range of motion, nontender back Neurologic: Alert and oriented ?3, SALES ENABLEMENT CONSULTANT is normal as tested, no gross motor deficit Course Vital Signs Vital signs: Vital Signs Pulse Rate 68 05/13/25 10:03 Respiratory Rate 14 05/13/25 10:03 Blood Pressure 146/83 H 05/13/25 10:03 Pulse Oximetry 98 05/13/25 10:03 Oxygen Delivery Room Air 05/13/25 10:03 Pulse Rate 77 05/13/25 11:45 Respiratory Rate 16 05/13/25 11:45 Blood Pressure 131/81 05/13/25 11:45 Pulse Oximetry 96 05/13/25 11:45 Oxygen Delivery Room Air 05/13/25 10:03 MDM - Abdominal Pain MDM Narrative Medical decision making narrative: Patient presents with epigastric pain prior to arrival Vital signs are stable Physical examination showing slight tenderness epigastric area otherwise within normal limit Differential diagnosis include gastritis, esophagitis, GERD, pancreatitis, cholecystitis, constipation, colitis, diverticulitis, urinary tract infection Blood workup today includes CBC, CMP, lipase showed insignificant abnormality Urinalysis showed no evidence of infection or abnormality CT abdomen and pelvis with IV contrast showed no acute abnormality Diagnosis epigastric pain, could be gastritis, esophagitis or secondary to zep bound Lab Data 05/13/25 10:10 05/13/25 10:10 Labs: Lab Results 05/13/25 05/13/25 Range/Units 10:10 10:15 WBC 7.4 (4.5-10.0) K/mm3 RBC 3.98 L (4.2-5.4) M/mm3 Hgb 12.5 (12.0-15.0) g/dL Hct 37.8 (37.0-47.0) % MCV 95.0 (80-100) fl MCH 31.4 (26-34) pg MCHC 33.1 (32-36) g/dl RDW 11.5 (11.5-14.5) % Plt Count 258 (150-375) k/mm3 MPV 9.5 (7.4-10.4) fl Immature Gran % (Auto) 0.3 (0-0.5) % Neut % (Auto) 66.6 (45.5-73.1) % Lymph % (Auto) 22.6 (18.3-44.2) % [place] % (Auto) 8.3 (2.6-8.5) % Eos % (Auto) 1.5 (0-4.4) % Baso % (Auto) 0.7 (0.2-1.2) % Lymph # (Auto) 1.68 (0.9-3.2) K/mm3 [place] # (Auto) 0.6 (0.1-0.6) K/mm3 Eos # (Auto) 0.1 (0-0.3) K/mm3 Baso # (Auto) 0.1 (0.0-0.1) K/mm3 Abs Immat Gran (auto) 0.02 (0.00-0.031) K/mm3 Absolute Neuts (auto) 5.0 (1.3-6.7) K/mm3 Absolute Nucleated RBC 0.000 (0.0-0.012) K/mm3 Nucleated RBC % 0.0 (0.0-0.2) % Sodium 134 L (137-145) mmol/L Potassium 3.7 (3.4-5.0) mmol/L Chloride 102 (98-107) mmol/L Carbon Dioxide 25 (22-30) mmol/L Anion Gap 7 (4-12) mmol/L BUN 13 D (7-17) mg/dL Creatinine 0.66 L (0.7-1.0) mg/dL Estim Creat Clear Calc 81 ml/min Estimated GFR > 60 (59 - ) Glucose 110 (65-110) mg/dL Calcium 8.6 (8.4-10.2) mg/dL Total Bilirubin 0.4 (0.2-1.3) mg/dL AST 32 (14-36) U/L ALT 25 (6-35) U/L Alkaline Phosphatase 70 (38-126) U/L Total Protein 7.0 (6.3-8.2) g/dL Albumin 4.1 (3.5-5.1) g/dL Lipase 55 (23-300) U/L Urine Color Yellow (Yellow) Urine Appearance Clear (Clear) Urine pH 6.5 (5.0-9.0) Ur Specific [place] 1.017 (1.001-1.035) Urine Protein Negative (Negative) mg/dL Urine Glucose (UA) Negative (Negative) mg/dL Urine Ketones Negative (Negative) mg/dL Ur Blood (Man) Negative (Negative) Urine Nitrate Negative (Negative) Urine Bilirubin Negative (Negative) Urine Urobilinogen 0.2 (<2.0) mg/dL Leukocyte Esterase Rfl Negative (Negative) RIKI/UL Imaging Data Radiologist's impression: ITS Impressions Abdomen/Pelvis CT 05/13/25 11:16 IMPRESSION: 1. No acute findings. Discharge Plan Discharge Clinical Impression: Acute epigastric pain Patient Disposition: Home Condition: Improved Instructions: Abdominal Pain (ED) Additional Instructions: Return if symptoms are worsening , call your family physician for appointment, take Tylenol as as needed for aches and pain, continue home medications. Patient Language: Hong Konger Prescriptions: New dicyclomine 10 mg capsule 20 mg PO QID 5 Days Qty: 40 0RF No Action valacyclovir 500 mg tablet 500 mg PO DAILY oxybutynin chloride 15 mg tablet extended release 24 hr 15 mg PO DAILY meloxicam 15 mg tablet 15 mg PO DAILY hydroxychloroquine 200 mg tablet 200 mg PO DAILY terbinafine HCl 250 mg tablet 250 mg PO DAILY Qty: 90 1RF fluoxetine 20 mg capsule 20 mg PO DAILY Qty: 90 1RF estradiol 2 mg tablet See Rx Instructions .ROUTE .COMPLEX Qty: 30 5RF Dose Instruction: TAKE 1 TABLET BY MOUTH DAILY Rx Instructions: TAKE 1 TABLET BY MOUTH DAILY lisdexamfetamine [Vyvanse] 20 mg capsule 20 mg PO DAILY Qty: 30 0RF Zepbound 15 mg/0.5 mL pen injector See Rx Instructions .ROUTE .COMPLEX Qty: 4 3RF Dose Instruction: INJECT 15 MG UNDER THE SKIN EVERY 7 DAYS Rx Instructions: INJECT 15 MG UNDER THE SKIN EVERY 7 DAYS Follow-up/Referrals: Lore Sarmiento, INTELLIGENCE RESEARCH SPECIALIST, BLEACH CHLORINATOR-C [Primary Care Provider, Family Practice]
[2025-05-13 10:22] LABS: Add Urine Microscopic? NO; Appearance Urine Clear (Clear); Glucose Urine UA Negative (Negative); Leukocyte Esterase Ur Negative LEU/UL (Negative); Nitrate Urine Negative (Negative); Specific Grav Ur 1.017 (1.001-1.035)
[2025-05-13] MEDS: SODIUM CHLORIDE 0.9% IV 1,000 ML 999 ML IV CONT (10:22)
[2025-05-13] MEDS: HYDROmorphone HCL INJ (*CRX) 1 MG/ML SYR 0.5 MG IV PUSH ×2 (10:25→12:13)
[2025-05-13] MEDS: ONDANSETRON INJ 4 MG/2 ML VIAL IV PUSH (10:26)
[2025-05-13 10:40] LABS: Alanine Aminotransferase 25 U/L (6-35); Albumin Level 4.1 g/dL (3.5-5.1); Alkaline Phosphatase 70 U/L (38-126); Anion Gap 7 mmol/L (4-12); Aspartate Amino Transferase 32 U/L (14-36); Bilirubin,Total 0.4 mg/dL (0.2-1.3); Blood Urea Nitrogen 13 mg/dL (7-17); Calcium 8.6 mg/dL (8.4-10.2); Carbon Dioxide 25 mmol/L (22-30); Chloride 102 mmol/L (98-107); Estimated CRCL calculation 81 ml/min; Estimated Glomerular Filt Rate > 60; Glucose 110 mg/dL (65-110); Lipase 55 U/L (23-300); Potassium 3.7 mmol/L (3.4-5.0); Sodium 134 mmol/L (137-145); Total Protein 7.0 g/dL (6.3-8.2)
== END 2025-05-13 13:31 | disposition home or self-care (01) ==
PROVIDERS: Student in an Organized Health Care Education/Training Program; Emergency Provider Emergency Medicine; PCP Nurse Practitioner Family
DX: R10.13 Epigastric pain (principal); M35.00 Sjogren syndrome, unspecified; G47.33 Obstructive sleep apnea (adult) (pediatric); Z85.828 Personal history of other malignant neoplasm of skin; Z90.710 Acquired absence of both cervix and uterus; Z79.890 Hormone replacement therapy; Z79.899 Other long term (current) drug therapy
CPT/HCPCS: 36415; 74177; 80053; 81003; 83690; 85025; 96361; 96374; 96375; 96376; 99284; J1171; J2405; J7030; Q9967

== ENCOUNTER 2025-06-25 10:17 | Emergency (ER) | payer BC, SELFPAY ==
--- NOTE | 2025-06-25 10:54 | ED_ITS ---
HPI - URI/Sore Throat General Chief Complaint: Upper Respiratory Infection Stated Complaint: runny nose, sneezing, watery eyes Time Seen by Provider: 06/25/25 11:10 Source: patient Mode of arrival: ambulatory Limitations: no limitations History of Present Illness HPI Narrative: Angie is a 59-year-old female patient presenting to clinic today with complaints of body aches, runny nose, sneezing, watery eyes, and fatigue x1 day. She has not taken any medications for her symptoms. She had is any chest pain or shortness of breath MD elicited complaint: sore throat and nasal congestion Related Data Home Medications ?Medication ?Instructions ?Recorded ?Confirmed ?Last Taken ?Type valacyclovir 500 mg tablet 500 mg PO DAILY 03/14/20 Unknown History hydroxychloroquine 200 mg tablet 200 mg PO DAILY 01/0406/25/25 Unknown History oxybutynin chloride 15 mg 15 mg PO DAILY 01/04/2105/30 Unknown History tablet,extended release 24 hr ivermectin 1 % topical cream applic topical 06/25/25 Unknown History pantoprazole 40 mg tablet,delayed mg PO 06/25/25 Unkn own History release Allergies Allergy/AdvReac Type Severity Reaction Status Date / Time erythromycin base Allergy Intermediate RASH Verified 06/25/25 11:11 Penicillins Allergy Intermediate RASH Verified 06/25/25 11:11 cephalexin Allergy Unknown Skin Verified 06/25/25 11:11 Reaction Cephalosporins Allergy Unknown Unknown Verified 06/25/25 11:11 Macrolide Antibiotics Allergy Unknown Rash Verified 06/25/25 11:11 Sulfa (Sulfonamide Allergy Unknown RASH Verified 06/25/25 11:11 Antibiotics) tramadol Allergy Unknown Unknown Verified 06/25/25 11:11 azithromycin AdvReac Unknown diarrhea Verified 06/25/25 11:11 ketolides Allergy Unknown Unknown Uncoded 06/25/25 11:11 Review of Systems Review of Systems: Pertinent positives per HPI. Patient denies any fever, chills, rash, headache, visual changes, dizziness, shortness of breath, chest pain, palpitations, nausea, vomiting, diarrhea, constipation, abdominal pain, or any urinary issues. PMFSH Past Medical History Medical History History of Sjogren's disease LUDWIN on CPAP Body mass index (BMI) of 40.1 to 44.9 in adult Hernia Basal cell carcinoma (BCC) left cheek Surgical History Surgical History H/O: section H/O: hysterectomy Family History Family History Father Family history of cardiovascular disease Mother Family history of lung cancer Family history of malignant neoplasm of skin Other Cerebrovascular accident Diabetes mellitus Family history of allergic disorder Family history of malignant neoplasm Family history of malignant neoplasm of breast in first degree relative Social History Social History Social History: Caffeine-coffee daily Smoking status: Never smoker Alcohol intake: current Alcohol use details: wine Lack of Transportation: No Lack of Food: Never True Current Housing: I Have Housing Concerned About Future Housing: No Difficulty Paying Gas/Electric Bills: No Difficulty Paying for Meds: Decline to Answer Currently Unemployed: No Education: Bachelor's Degree Difficulty w/ Childcare or Family Care: No Comments At the time of my signature, I reviewed and agree with the nursing past medical, surgical, social, and family history. There is no relevant family history pertinent to the patient complaint. Exam Narrative: General: Well-developed, well nourished, in no apparent distress Head: Normocephalic, atraumatic Eyes: Pupils equally round and reactive to light bilaterally, EOM intact, sclera and conjunctive clear, no discharge, lids normal Ears: TMs intact and clear, ear canals clear, no drainage, grossly hearing normal. Nose: Nares patent, clear nasal discharge, no inflammation, no sinus tenderness. Mouth: Oral pharynx without lesions or masses, good dentition, MMM. Neck: Supple, trachea midline, no enlargement of anterior or posterior cervical nodes, no thyroid masses or goiter palpable. Cardio: Regular rate and rhythm, s1 and s2 normal, no murmur appreciated. Resp: Clear to auscultation bilaterally, no rhonchi, rales, wheezing or rubs Course Course Level of Care: Express Care Visit Vital Signs Vital signs: Vital Signs Temperature 36.4 C 06/25/25 11:02 Pulse Rate 93 06/25/25 11:02 Respiratory Rate 16 12/28/25 11:02 Blood Pressure 126/74 06/25/25 11:02 Pulse Oximetry 99 06/25/25 11:02 Temperature 36.4 C 06/25/25 11:02 Pulse Rate 93 06/25/25 11:02 Respiratory Rate 16 06/25/25 11:02 Blood Pressure 126/74 06/25/25 11:02 Pulse Oximetry 99 06/25/25 11:02 MDM MDM Narrative Medical decision making narrative: At the time of visit patient is resting comfortably on the exam table. Patient appears to be nontoxic. Complaints of body aches, runny nose, sneezing, watery eyes, and fatigue x1 day. She has not taken any medications for her symptoms. She had is any chest pain or shortness of breath. On exam patient has bilateral TMs intact and clear, clear nasal drainage, no anterior turbinate inflammation, oral pharynx normal, no cervical lymphadenopathy, lung sounds clear, heart rates regular rate and rhythm. Labs: COVID and influenza testing was ordered. COVID was positive. Influenza testing was negative. Plan: COVID testing was positive. Paxlovid Rx sent to pharmacy. Side effects were reviewed with the patient and she is agreeable to take this medications. Supportive measures were discussed with the patient and they voiced understanding discharge instructions and agrees to treatment plan. Return precautions reviewed Differential Diagnosis Differential Diagnosis: Differential diagnostic considerations for upper respiratory infection include upper respiratory infection, croup, otitis media, sinusitis, viral infection, bronchitis, influenza, pharyngitis, strep, uvulitis. Lab Data Labs: Lab Results 06/25/25 Range/Units 11:19 POC Influenza A Ag Negative (Negative) POC Influenza B Ag Negative (Negative) POC SARS CoV-2 Ag Positive (Negative) Discharge Plan Discharge Clinical Impression: COVID-19 Patient Disposition: Home Condition: Stable Instructions: Antibiotic Form, How to Recover from COVID-19 at Home (ED) Additional Instructions: Take prescription medications only as prescribed-Paxlovid May take DayQuil/NyQuil for cold/flu symptoms Increase fluids and stay well hydrated May take Tylenol or motrin as directed on bottle for pain/fever May use Flonase 1 spray in each nare daily May take OTC antihistamines such as Zyrtec or Claritin daily as directed on bottle May apply Vicks vapor rub to chest to open sinuses Sinus rinses for congestion Cepacol spray, cough drops, throat lozenges, warm tea with honey/lemon, gargle salt water to soothe throat BRAT diet for diarrhea Clear liquids x 24 hours then advance as tolerated for nausea/vomiting Go to the ED if you develop a worsening in your condition- high fever not controlled by Tylenol or Motrin, dehydration, weakness, lethargy, shortness of breath, or chest pain. Follow up with your PCP in 3-5 days if symptoms persist. Patient Language: Dominican Prescriptions: New Paxlovid 300 mg (150 mg x 2)-100 mg tablets,dose pack See Rx Instructions PO .COMPLEX Qty: 30 0RF Rx Instructions: take TWO 150 mg tablets of nirmatrelvir with ONE 100 mg tablet of ritonavir twice daily for 5 days No Action pantoprazole 40 mg tablet,delayed release (DR/EC) PO ivermectin 1 % cream TOPICAL valacyclovir 500 mg tablet 500 mg PO DAILY sucralfate 1 gram tablet 1 g PO Q4H PRN (Reason: abdominal discomfort) Qty: 60 0RF oxybutynin chloride 15 mg tablet extended release 24 hr 15 mg PO DAILY hydroxychloroquine 200 mg tablet 200 mg PO DAILY pantoprazole [Protonix] 20 mg tablet,delayed release (DR/EC) 20 mg PO QAM Qty: 30 0RF terbinafine HCl 250 mg tablet 250 mg PO DAILY Qty: 90 1RF fluoxetine 20 mg capsule 20 mg PO DAILY Qty: 90 1RF estradiol 2 mg tablet See Rx Instructions .ROUTE .COMPLEX Qty: 30 5RF Dose Instruction: TAKE 1 TABLET BY MOUTH DAILY Rx Instructions: TAKE 1 TABLET BY MOUTH DAILY Zepbound 15 mg/0.5 mL pen injector See Rx Instructions .ROUTE .COMPLEX Qty: 4 3RF Dose Instruction: INJECT 15 MG UNDER THE SKIN EVERY 7 DAYS Rx Instructions: INJECT 15 MG UNDER THE SKIN EVERY 7 DAYS lisdexamfetamine [Vyvanse] 20 mg capsule 20 mg PO DAILY Qty: 30 0RF Follow-up/Referrals: Lore Sarmiento, INVESTIGATOR INTERNAL REVENUE, CUSTOMER AGENT-C [Primary Care Provider, [facility]] Time of Disposition: 11:29 Quality NIHSS Nursing Documentation ED NIHSS nursing documentation: reviewed/agree
[2025-06-25 11:02] VITALS: BP 126/74; PULSE 93; RESP 16; TEMP 36.4; O2SAT 99
[2025-06-25 11:21] LABS: EDCOVIDSCREEN Positive (Negative); EDINFLUASCREEN Negative (Negative); EDINFLUBSCREEN Negative (Negative)
== END 2025-06-25 11:36 | disposition home or self-care (01) ==
PROVIDERS: Emergency Provider Nurse Practitioner Family; PCP Nurse Practitioner Family
DX: U07.1 COVID-19 (principal); M35.00 Sjogren syndrome, unspecified; G47.33 Obstructive sleep apnea (adult) (pediatric); Z85.828 Personal history of other malignant neoplasm of skin
CPT/HCPCS: 87426; 87804; 99213; G0463